=== PATIENT | female | born 1995 | race Caucasian/White ===

== ENCOUNTER 2017-12-30 23:10 | Emergency (ER) | payer OTHER ==
[2017-12-30 23:25] VITALS: BP 150/89; PULSE 88; TEMP 98.2; BMI 32.8
--- NOTE | 2017-12-31 00:39 | PDOC ---
Attending Attestation - HPI HPI: 12/31/17 00:40 The patient is a 22 year old female, with no significant past medical history, who presents to the emergency department for evaluation of intermittent, throbbing, left sided headache. She reports sound and light exacerbates her headache. She denies experiencing a headache of this nature. She states she has experienced headaches in the past, however, not during the day. The patient denies chest pain, shortness of breath, and dizziness. The patient denies fever, chills, nausea, vomit, diarrhea and constipation. The patient denies dysuria, frequency, urgency and hematuria. Allergies: NKDA - Medical Decision Making 12/31/17 00:41 Documentation prepared by Tamy Ellis, acting as medical staff services manager for Daniel Pisano DO. <Tamy Ellis - Last Filed: 12/31/17 00:39> - Resident Resident Name: Armin Quirozel - ED Attending Attestation I have performed the following: I have examined & evaluated the patient, The case was reviewed & discussed with the resident, I agree w/resident's findings & plan, Exceptions are as noted - Physicial Exam PE: 12/31/17 02:45 *Physical Exam General Appearance: Yes: Appropriately Dressed. No: Apparent Distress, Intoxicated HEENT: positive: EOMI, MARSHALL, Normal ENT Inspection, Normal Voice, TMs Normal, Pharynx Normal. negative: Pale Conjunctivae, Photophobia, Scleral Icterus (R), Scleral Icterus (L) Neck: positive: Trachea midline, Normal Thyroid, Supple. negative: Tender, Rigid, Carotid bruit, Stridor, Lymphadenopathy (R), Lymphadenopathy (L), Thyromegaly Respiratory/Chest: positive: Lungs Clear, Normal Breath Sounds. negative: Chest Tender, Respiratory Distress, Accessory Muscle Use, Labored Respiration, RES, Crackles, Rales, Rhonchi, Stridor, Wheezing, Dullness Cardiovascular: positive: Regular Rhythm, Regular Rate, S1, S2. negative: Edema , JVD, Murmur, Bradycardia, Tachycardia Vascular Pulses: Dorsalis-Pedis (R): 2+, Doralis-Pedis (L): 2+ Gastrointestinal/Abdominal: positive: Normal Bowel Sounds, Flat, Soft. negative : Tender, Organomegaly, Pulsatile Mass, Increased Bowel Sounds, Decreased BS, Distended, Guarding, Rebound, Hernia, Hepatomegaly, Spleenomegaly Lymphatic: negative: Adenopathy, Tenderness Musculoskeletal: positive: Normal Inspection. negative: CVA Tenderness, Decreased Range of Motion Extremity: positive: Normal Capillary Refill, Normal Inspection, Normal Range of Motion, Pelvis Stable. negative: Tender, Pedal Edema, Swelling, Erythema Integumentary: positive: Normal Color, Dry, Warm. 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 negative: EOM Palsy, Facial Droop, Sensory Deficit - Medical Decision Making 12/31/17 03:10 Pt treated and released <Daniel Pisano - Last Filed: 12/31/17 03:10>
[2017-12-31] MEDS ORDERED: IBUPROFEN 600 MG TABLET (FP) PO ONE (00:40)
[2017-12-31] MEDS ORDERED: METOCLOPRAMIDE HCL 10 MG TABLET (FP) PO ONE ×2 (00:40→00:52)
--- NOTE | 2017-12-31 00:48 | PDOC ---
History of Present Illness - General Chief Complaint: Headache Stated Complaint: HEADACHE Time Seen by Provider: 12/31/17 00:20 - History of Present Illness Initial Comments: 12/31/17 00:44 The patient is a 22 year old female with no significant PMH who presents for evaluation of headache. The patient reports a 2 day history of intermittent left sided throbbing headache with associated photophobia, phonophobia. She reports an increase in frequency of her headaches today prompting her presentation to the ED for evaluation. She endorses some nausea, but otherwise denies fevers, chills, SOB, chest pain, vomiting, abdominal pain, numbness, tingling, weakness, or changes with urination or bowel movements. Past History - Past Medical History Allergies/Adverse Reactions: Allergies Allergy/AdvReac Type Severity Reaction Status Date / Time No Known Allergies Allergy Verified 12/30/17 23:22 COPD: No - Suicide/Smoking/Psychosocial Hx Smoking History: Never smoked Review of Systems - Review of Systems Comments:: 12/31/17 00:46 Constitutional: No fevers, chills, fatigue, malaise HEENT: No Rhinorrhea, nasal congestion, visual changes Cardiovascular: No chest pain, syncope, palpitations, lightheadedness Respiratory: No Cough, SOB, Hemoptysis, Gastrointestinal: Nausea. No Abdominal pain, Vomiting, Constipation, Diarrhea, Melena Genitourinary: No Dysuria, Frequency, Urgency, Hesitancy, Hematuria, Flank pain Musculoskeletal: No Myalgia, arthralgia Skin: No rashes, itching, bruising, pallor Neurologic: Headache. No Dizziness, Numbness, Weakness, or Tingling Psychiatric: No Hallucinations. No SI or HI *Physical Exam - Vital Signs Last Vital Signs Temp Pulse Resp BP Pulse Ox 98.2 F 88 18 150/89 100 12/30/17 23:23 12/30/17 23:23 12/30/17 23:23 12/30/17 23:23 12/30/17 23:23 - Physical Exam Comments: 12/31/17 00:47 General Appearance: Nourished. No Apparent Distress HEENT: EOMI, MARSHALL. No Pharyngeal Erythema, Tonsillar Exudate, Tonsillar Erythema Neck: No Cervical Lymphadenopathy Respiratory/Chest: Lungs Clear, Normal Breath Sounds. No Crackles, Rales, Rhonchi, Wheezing Cardiovascular: Regular Rhythm, Regular Rate. No Murmur, Gallops, Rubs Gastrointestinal/Abdominal: Normal Bowel Sounds, Soft. 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 Normal Finger to Nose and Heel to [place] Medical Decision Making - Medical Decision Making 12/31/17 00:47 The patient is a 22 year old female with no significant PMH who presents for evaluation of headache. Given the patient's history and normal physical exam, it is likely her symptoms are due to a Migraine headache. We will treat the patient with reglan and ibuprofen here in the ED. We will continue to monitor and reassess. 12/31/17 03:[address] is negative as preliminarily read by the oncall radiologist pending official radiology read. We are comfortable discharging the patient home at this time with neurology follow up. We discussed the results and the plan with the patient who voiced understanding and is agreeable with the plan. *DC/Admit/Observation/Transfer Diagnosis at time of Disposition: Migraine Qualifiers: Migraine type: unspecified Status migrainosus presence: without status migrainosus Intractability: not intractable Qualified Code(s): G43.909 - Migraine, unspecified, not intractable, without status migrainosus - Discharge Dispostion Disposition: HOME Condition at time of disposition: Good Admit: No - Referrals Referrals: Nigel Rhodes DO [Staff Physician] - - Patient Instructions Printed Discharge Instructions: DI for Migraine Additional Instructions: Please return to the ER if you experience concerning or worsening symptoms including worsening pain, vomiting or fevers. Your head ct was normal here in the ER. It is likely your symptoms are due to a migraine headache. We have provided a number to call with a neurologist (Dr. Rhodes) who you should schedule a follow up appointment within 1 week. - Post Discharge Activity
[2017-12-31] MEDS ORDERED: IBUPROFEN 400 MG TABLET (FP) PO ONE (00:52)
[2017-12-31] MEDS ORDERED: ACETAMINOPHEN/CAFFEINE/BUTALBITAL 1 TAB PO ONE (03:08)
[2017-12-31] MEDS ORDERED: ACETAMINOPHEN/CAFFEINE/BUTALBITAL 1 TAB ONE (03:16)
== END 2017-12-31 03:21 | disposition home or self-care (01) ==
LOC: JER 23:10
DX: G43.909 Migraine, unspecified, not intractable, without status migrainosus (principal)
CPT/HCPCS: 70450-TC; 84703; 99281-25